=== PATIENT | female | born 1985 | race Hispanic/Latino ===

== ENCOUNTER 2025-07-08 22:01 | Emergency (ER) | payer OTHER ==
[2025-07-08] MEDS ORDERED: Ibuprofen 200 MG TAB ONE (22:35)
== END 2025-07-08 22:45 | disposition home or self-care (01) ==
LOC: CSHERS 22:01
DX: S70.262A Insect bite (nonvenomous), left hip, initial encounter (principal); L08.9 Local infection of the skin and subcutaneous tissue, unspecified; W57.XXXA Bitten or stung by nonvenomous insect and other nonvenomous arthropods, initial encounter; Y92.009 Unspecified place in unspecified non-institutional (private) residence as the place of occurrence of the external cause